=== PATIENT | male | born 1960 | race Two or more races ===

== ENCOUNTER 2020-11-11 09:48 | Emergency (ER) | payer OTHER ==
[~2020-11-11] VITALS: Ht 175.3 cm; Wt 74.8 kg
--- NOTE | 2020-11-11 10:05 | NUR ---
c/o dizziness and nausea vomiting since this morning. Patient a/ox4, breathing even and unlabored, no sob noted, c/o room spinning, vomited x1 on arrival. Patient assisted to bed. Neighbor Daniel at bedside.
--- NOTE | 2020-11-11 10:09 | NUR ---
DR. MENENDEZ AT BEDSIDE FOR EVAL.
--- NOTE | 2020-11-11 10:10 | NUR ---
IV LINE ESTABLISHED, BLOOD DRAWN AND SENT TO LAB.
[2020-11-11] MEDS ORDERED: METOCLOPRAMIDE HCL 10 MG/2 ML VIAL ONE (10:13)
--- NOTE | 2020-11-11 10:14 | NUR ---
merrick [phone] (NEIGHBOR)
[2020-11-11] MEDS ORDERED: ONDANSETRON HCL/PF 4 MG/2 ML VIAL ONE (10:19)
[2020-11-11] MEDS: IV NS 0.9% 1,000 ML BAG IV ONE (10:20)
[2020-11-11] MEDS: METOCLOPRAMIDE HCL 10 MG/2 ML VIAL IV ONE (10:20)
[2020-11-11] MEDS: ONDANSETRON HCL/PF 4 MG/2 ML VIAL IVP ONE (10:21)
[2020-11-11 10:25] LABS: BASOPHILS # (AUTO) 0.1 /CMM (0.0-0.2); BASOPHILS % (AUTO) 1.1 % (0.0-2.0); EOSINOPHILS % (AUTO) 1.2 % (0.0-6.0); HEMATOCRIT 44 % (39-51); HEMOGLOBIN 15.1 g/dL (13.5-17.5); LYMPHOCYTES % (AUTO) 17.5 % (20.0-44.0); MEAN CORPUSCULAR HGB CONC 35 g/dl (31.0-36.0); MEAN CORPUSCULAR VOLUME 85 fL (80-96); MONOCYTES # (AUTO) 0.3 /CMM (0.1-1.30); MONOCYTES % (AUTO) 5.9 % (2.0-12.0); NEUTROPHILS # (AUTO) 4.2 /CMM (1.8-8.9); NEUTROPHILS % (AUTO) 74.3 % (43.0-81.0); PLATELET COUNT (AUTO) 321 /CMM (150-450); RED BLOOD CELL COUNT(AUTO) 5.17 MIL/uL (4.5-6.0); WHITE BLOOD COUNT (AUTO) 5.7 K/uL (4.3-11.0)
[2020-11-11 10:37] LABS: ALANINE AMINOTRANSFERASE 24 U/L (12-78); ALBUMIN 4.1 g/dL (3.4-5.0); ALKALINE PHOSPHATASE 48 U/L (46-116); ASPARTATE AMINOTRANSFERASE 15 U/L (15-37); BILIRUBIN,DIRECT 0.2 mg/dL (0.0-0.2); BILIRUBIN,TOTAL 1.3 mg/dL (0.2-1.0); CALCIUM, SERUM 8.8 mg/dL (8.5-10.1); CARBON DIOXIDE 26 mmol/L (21-32); CHLORIDE 103 mmol/L (98-107); GLUCOSE 177 mg/dL (74-106); LIPASE 72 U/L (73-393); SODIUM SERUM 139 mmol/L (136-145); TOTAL PROTEIN, SERUM 7.3 g/dL (6.4-8.2); UREA NITROGEN, BLOOD 17 mg/dL (7-18)
--- NOTE | 2020-11-11 11:49 | NUR ---
Patient resting, sts he feels better, dizziness improved. Called neighbor Daniel.
--- NOTE | 2020-11-11 12:07 | NUR ---
IV removed. Catheter intact and site benign. Pressure and 4x4 applied to site. No bleeding noted. Patient is waiting for his friend.
[2020-11-11 12:58] VITALS: BP 109/66
== END 2020-11-11 12:30 | disposition home or self-care (01) ==
LOC: ER 10:00
DX: R42 Dizziness and giddiness (principal); R11.10 Vomiting, unspecified
CPT/HCPCS: 36415; 71045; 80048; 80076; 83690; 84484; 85025; 93005; 96361; 96374; 96375; 99285; J2405; J2765; J7030 ×2

== ENCOUNTER 2022-01-24 02:34 | Emergency (ER) | payer OTHER ==
[~2022-01-24] VITALS: Ht 175.3 cm; Wt 75.3 kg
--- NOTE | 2022-01-24 02:48 | NUR ---
Received a 61 year old male. Patient with complaint of left lower back pain that radiates down to left thigh. Patient states that pain started on morning. Patient states he had prior surgery for herniated disc 20 years ago. Patient states he initially went to urgent care in [facility] for left leg inflammation and was prescribed tramadol. Patient states he took 1 tablet of presrcibed tramadol 2 hours ago, which did not alleviate pain. Patient does not remember med dose.
[2022-01-24 02:55] VITALS: BP 130/76
[2022-01-24] MEDS ORDERED: KETOROLAC TROMETHAMINE INJ 30 MG/ML VIAL ONE (03:08)
[2022-01-24] MEDS ORDERED: CYCLOBENZAPRINE 10 MG TABLET ONE (03:08)
[2022-01-24] MEDS ORDERED: LIDO30AD10 TP (03:10)
[2022-01-24] MEDS ORDERED: NAPR-1164 PO (03:10)
[2022-01-24] MEDS ORDERED: CYCL5TAB PO (03:10)
--- NOTE | 2022-01-24 03:18 | NUR ---
Patient discharged to home in stable condition. Written and verbal after care instructions given. Patient verbalizes understanding of instruction.
[2022-01-24] MEDS ORDERED: KETOROLAC TROMETHAMINE INJ 60 MG/2 ML VIAL IM ONE (03:30)
[2022-01-24] MEDS ORDERED: CYCLOBENZAPRINE 10 MG TABLET PO ONE (03:30)
== END 2022-01-24 03:27 | disposition home or self-care (01) ==
LOC: ER 02:35
DX: S33.5XXA Sprain of ligaments of lumbar spine, initial encounter (principal); Z60.2 Problems related to living alone; Z79.899 Other long term (current) drug therapy; V49.49XA Driver injured in collision with other motor vehicles in traffic accident, initial encounter; Y93.89 Activity, other specified; Y92.413 State road as the place of occurrence of the external cause; Y99.8 Other external cause status
CPT/HCPCS: 99283; 96372; J1885